=== PATIENT | female | born 1940 | race African-American/Black ===

== ENCOUNTER → 2017-02-03 | Outpatient (CLI) | payer MEDICARE, OTHER ==
--- NOTE | 2017-02-03 16:13 | KCIC ---
Bone mineral density exam History: Postmenopausal, osteoporosis screening Comparison: None Findings: Bone mineral density examination utilizing DEXA was performed. Left hip bone mineral density of 0.781 g/cm2 corresponds with a T score -1.3, Z score -0.1. The bone mineral density of the lumbar spine was 0.938 g/cm2 which corresponds with a T-score of -1.0, Z score 0.9. By World Congress on Osteoporosis criteria, a T score of 0 to-1 SD is considered to be within normal limits. A T score of -1 to -2.5 SD is considered osteopenia. A T score less than -2.5 SD is considered osteoporosis Impression: 1. There is osteopenia of the left hip. Bone mineral density lumbar spine is considered within normal limits although borderline osteopenia, likely artificially elevated due to the presence of degenerative change. Electronically signed by: Erwin Moreno MD (02/03/2017 4:10 PM) [id number]
== END | disposition home or self-care (01) ==
LOC: KCIC DEXA 11:01
PROVIDERS: ATTEND Family Medicine
DX: Z13.820 Encounter for screening for osteoporosis (principal); M85.80 Other specified disorders of bone density and structure, unspecified site; Z78.0 Asymptomatic menopausal state
CPT/HCPCS: 77080

== ENCOUNTER → 2017-04-23 | Outpatient (CLI) | payer MEDICARE ==
--- NOTE | 2017-04-23 17:12 | KCIC ---
BILATERAL DUPLEX CAROTID SONOGRAPHY History: Carotid bruit Technique: Duplex sonography of the cervical portion of both carotid arteries was performed. Real-time grayscale, color flow Doppler, and Doppler spectral waveform analysis is performed. Findings: Right side: Peak systolic flow velocity of the CCA is 104 cm/sec. Peak systolic flow velocity of the ICA is 124 cm/sec. The ICA/CCA ratio is 1.2. Peak end diastolic flow velocity of the ICA is 24 cm/sec. The peak systolic velocity of the ECA is 153 cm/sec. No significant plaque formation is identified. Left side: Peak systolic flow velocity of the CCA is 121 cm/sec. Peak systolic flow velocity of the ICA is 117 cm/sec. The ICA/CCA ratio is 1. Peak end diastolic flow velocity of the ICA is 43 cm/sec. Peak systolic flow velocity of the ECA is 111 cm/sec. No significant plaque formation is identified. Vertebral arteries: Bilateral vertebral arteries demonstrate antegrade flow. IMPRESSION: No hemodynamically significant internal carotid artery stenosis is identified. PQRS Compliance Statement - Stenosis calculations for CT, MR and conventional angiography are based upon measurement of the distal ICA diameter in accordance with the NASCET methodology. Stenosis calculations for carotid ultrasound studies are derived from validated velocity criteria which are known to correlate with the NASCET methodology. Electronically signed by: Ricardo Kim MD (04/23/2017 5:09 PM) [id number]
== END | disposition home or self-care (01) ==
LOC: KCIC US 13:18
PROVIDERS: ATTEND Family Medicine
DX: R09.89 Other specified symptoms and signs involving the circulatory and respiratory systems (principal)
CPT/HCPCS: 93880

== ENCOUNTER 2021-08-17 09:24 | Day surgery (SDC) | payer MEDICARE ==
[~2021-08-17] VITALS: Ht 157.5 cm; Wt 74.0 kg
[~2021-08-17 09:24] MED LIST: AMLO-307 PO; ASCO500C PO; ASPI-630 PO; ATOR10TA60 PO; CALC-52 PO; CIPROFLOXACIN 0.3% OPHTH SOLUTION 5ML BOTTLE. OS ONE; GLIM2TAB7 PO; HYDR-2145 PO; HYDR10SY16 PO; LIDOCAINE 2% JELLY 6ML IN APPLICATOR. OS ONE; METO-239 PO; MIRA25TA PO; PROPARACAINE 0.5% OPHTH SOLUTION 15ML BOTTLE. OS ONE; UBID200C7 PO
[2021-08-17] MEDS ORDERED: LIDOCAINE 1%/PHENYLEPH 1.5% PF OPHTH 1 ML VIAL. ONE (09:32)
[2021-08-17] MEDS ORDERED: NEO/POLYMYX/DEXAMETH OPHTH OINTMENT 3.5GM TUBE. ONE (09:33)
[2021-08-17] MEDS ORDERED: CHONDROIT-SOD-HYALURONATE KIT. ONE (09:33)
[2021-08-17] MEDS ORDERED: CHONDROITIN-SOD-HYALURONATE 0.5 ML DISP.SYRIN. ONE (09:33)
[2021-08-17 10:07] VITALS: BP 195/87
[2021-08-17] MEDS: CYCLOPENTOLATE 1% OPHTH SOLUTION 2ML BOTTLE. OS SCH ×3 (10:13→10:23)
[2021-08-17] MEDS: PHENYLEPHRINE 10% OPHTH SOLUTION 5ML BOTTLE. OS SCH ×3 (10:13→10:23)
[2021-08-17] MEDS ORDERED: IV RINGERS,LACTATED 1000ML 1,000 ML IV SCH (10:15)
[2021-08-17 11:55] VITALS: BP 190/82
--- NOTE | 2021-08-17 12:14 | OP ---
DATE OF SURGERY: 08/17/2021 PREOPERATIVE DIAGNOSIS: Cataract of the left eye. PROCEDURE: Phacoemulsification with posterior chamber intraocular lens implantation of the left eye. INDICATION: Painless progressive visual loss and visually significant cataract. SURGEON: Mere De Luna MD ANESTHESIA: Topical with monitored anesthesia care. DESCRIPTION OF PROCEDURE: The left eye was prepped with Betadine in the usual sterile fashion and draped. A paracentesis was performed followed by instillation of preservative-free phenylephrine admixed with lidocaine and balanced salt solution. A temporal clear corneal incision was made followed by instillation of Viscoat. A capsulorrhexis was performed, followed by hydrodissection. The phacoemulsification handpiece was used to remove the nucleus in a modified stop and chop fashion. The I/A handpiece was used to remove the cortex. Provisc was injected in the anterior chamber and an Dash model [id number] with a power of 23.0 diopters was placed into the capsular bag. Balanced salt solution was used to hydrate the corneal wounds and the viscoelastic evacuated with the I/A handpiece. Once no leak was noted, Maxitrol was placed on the eye and the eye shielded and the patient was sent to the recovery room uneventfully. NEGRO DR: Missy TID: [id number]
== END 2021-08-17 12:15 | disposition home or self-care (01) ==
LOC: SURG 09:24
PROVIDERS: ATTEND Ophthalmology
DX: E11.36 Type 2 diabetes mellitus with diabetic cataract (principal); H25.89 Other age-related cataract; I10 Essential (primary) hypertension; E78.00 Pure hypercholesterolemia, unspecified; M19.90 Unspecified osteoarthritis, unspecified site; Z98.51 Tubal ligation status; Z90.710 Acquired absence of both cervix and uterus; Z98.890 Other specified postprocedural states; Z79.899 Other long term (current) drug therapy; Z87.891 Personal history of nicotine dependence; Z79.82 Long term (current) use of aspirin; Z88.1 Allergy status to other antibiotic agents
CPT/HCPCS: 66984; 82962; A4930; J0171; J0690; J1580; J3490; V2632